=== PATIENT | female | born 1990 ===

== ENCOUNTER 2018-10-16 12:30 | Inpatient (IN) | payer OTHER ==
[~2018-10-16] VITALS: Ht 165.1 cm; Wt 73.0 kg
[2018-10-27] MEDS ORDERED: PRENATABS RX T1 EACH PO (22:15)
== END 2018-10-29 11:52 | disposition home or self-care (01) | DRG 807 ==
LOC: O/R 12:30 → LDR 10-27 21:29 → OB/GYN 10-28 00:17
PROVIDERS: ADMIT Obstetrics & Gynecology
PROC: 10E0XZZ Delivery of Products of Conception, External Approach (ICD-10-PCS; principal; 2018-10-27)
PROC: 0KQM0ZZ Repair Perineum Muscle, Open Approach (ICD-10-PCS; 2018-10-27)
PROC: 4A1HXCZ Monitoring of Products of Conception, Cardiac Rate, External Approach (ICD-10-PCS; 2018-10-27)
PROC: 4A033R1 Measurement of Arterial Saturation, Peripheral, Percutaneous Approach (ICD-10-PCS; 2018-10-27)
DX: O70.1 Second degree perineal laceration during delivery (principal); Z37.0 Single live birth; Z3A.38 38 weeks gestation of pregnancy